=== PATIENT | female | born 2000 | race Caucasian/White ===

== ENCOUNTER 2024-04-10 12:55 | Emergency (ER) | payer MEDICAID, SELFPAY ==
[2024-04-10 13:07] VITALS: BP 123/89; PULSE 84; O2SAT 99
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
[2024-04-10 13:36] VITALS: BP 132/91; PULSE 87; RESP 12; TEMP 35.6; O2SAT 99
[2024-04-10 13:54] VITALS: BP 132/91; PULSE 87; RESP 12; TEMP 35.6; O2SAT 99; BMI 22.7
[2024-04-10 15:07] VITALS: BP 125/78; PULSE 85; RESP 17; TEMP 36.6; O2SAT 98
== END 2024-04-10 15:17 | disposition home or self-care (01) ==
PROVIDERS: Emergency Provider Emergency Medicine
DX: Z04.1 Encounter for examination and observation following transport accident (principal)
CPT/HCPCS: 99282